=== PATIENT | male | born 1985 | race Caucasian/White ===

== ENCOUNTER 2023-10-28 06:17 | Day surgery (SDC) | payer SELFPAY ==
[2023-10-22 11:00] VITALS: BMI 35.5
[2023-10-28] MEDS ORDERED: OXYMETAZOLINE 0.05% NASAL SOLUTION 15 ML BOTTLE NS ONE (07:07)
[2023-10-28] MEDS ORDERED: LIDOCAINE 1%/EPI 1:100000 (20 ML MULTI DOSE VIAL) ONE (07:07)
[2023-10-28] MEDS ORDERED: BUPIVACAINE HCL/PF 0.5% (5MG/ML) 10 ML VIAL ONE (07:07)
[2023-10-28] MEDS ORDERED: ceFAZolin SODIUM 1 GM VIAL ONE ×3 (07:52→08:35)
[2023-10-28] MEDS ORDERED: ONDANSETRON 4 MG/2 ML VIAL ONE ×2 (07:52→12:32)
[2023-10-28] MEDS ORDERED: DEXAMETHASONE SOD PHOSPHATE 4 MG/1 ML VIAL ONE ×2 (07:52→08:38)
[2023-10-28] MEDS ORDERED: LIDOCAINE HCL/PF 2% SDV 5ML VIAL ONE (07:52)
[2023-10-28] MEDS ORDERED: ROCURONIUM BROMIDE 50 MG/5 ML SYRINGE ONE ×3 (07:53→10:45)
[2023-10-28] MEDS ORDERED: MIDAZOLAM HCL 2 MG/2 ML SINGLE DOSE VIAL ONE (07:53)
[2023-10-28] MEDS ORDERED: PROPOFOL 20 ML ONE ×2 (07:53→09:45)
[2023-10-28] MEDS ORDERED: ACETAMINOPHEN INJECTION 100 ML IVPB ONE (08:02)
[2023-10-28] MEDS ORDERED: SEVOFLURANE 250 ML BTL ONE (08:43)
[2023-10-28] MEDS ORDERED: DEXMEDETOMIDINE HCL 200 MCG/2 ML IVPB ONE (08:44)
[2023-10-28] MEDS ORDERED: SUGAMMADEX SODIUM 200 MG/2 ML VIAL ONE ×2 (08:48→11:04)
[2023-10-28] MEDS ORDERED: BACITRACIN ZINC 15 GM TUBE TOPICAL OINTMENT ONE (11:21)
[2023-10-28] MEDS ORDERED: ACETAMINOPHEN 325 MG TABLET (FP) PO PRN (11:34)
[2023-10-28] MEDS ORDERED: oxyCODONE HCL 5 MG TABLET PO PRN ×3 (11:34→11:46)
[2023-10-28] MEDS ORDERED: LACTATED RINGERS SOLUTION 1,000 ML IV SCH ×2 (11:45→12:00)
[2023-10-28] MEDS: ONDANSETRON 4 MG/2 ML VIAL IVPUSH PRN (12:32)
[2023-10-28] MEDS ORDERED: FENTANYL CITRATE/PF 50 MCG/ML VIAL ONE (12:32)
[2023-10-28 14:13] VITALS: TEMP 98
[2023-10-28 15:17] VITALS: BP 124/75; PULSE 94; RESP 17
[2023-10-28] MEDS ORDERED: ONDANSETRON 4 MG/2 ML VIAL IVPB PRN (17:35)
== END 2023-10-28 14:50 | disposition home or self-care (01) ==
LOC: FASU 06:17
PROVIDERS: ATTEND Plastic Surgery
PROC: 09UK07Z Supplement Nasal Mucosa and Soft Tissue with Autologous Tissue Substitute, Open Approach (ICD-10-PCS; principal; 2023-10-28 08:58)
DX: M95.0 Acquired deformity of nose (principal)
CPT/HCPCS: 94760; J0131